=== PATIENT | male | born 1960 | race American Indian/Alaskan Native ===

== ENCOUNTER 2017-05-24 21:51 | Emergency (ER) | payer BC, OTHER ==
[2017-05-24 23:42] VITALS: BP 160/92
--- NOTE | 2017-05-24 23:42 | EDM.PDOC ---
ED HPI GENERAL MEDICAL PROBLEM - General Chief Complaint: General Stated Complaint: HIGH BLOOD PRESURE WEAK Time Seen by Provider: 05/24/17 21:56 Source of Information: Reports: Patient, Family (), RN Notes Reviewed History Limitations: Reports: No Limitations - History of Present Illness INITIAL COMMENTS - FREE TEXT/NARRATIVE: The patient states that he was attending a stressful meeting from noon until 18: 00, and around 13:00 he developed a headache felt behind his eyes. No blurry vision. He took 2 Tylenol around 18:00, and his headache subsequently resolved by 20:00. In the meantime, however, he went to the [facility] EMS station, where his blood pressure was checked and found to be elevated at 179/109. An ECG was performed, reviewed by a physician friend of one of the EMS personnel, and the physician suggested that the patient go to the ER for evaluation. The patient states that at no time did he have any chest pain, dyspnea, or palpitations. The patient does not have a history of hypertension. The patient reports that he ordinarily drinks about 1/2 to 3/4 of a pot of coffee daily, but that he abruptly discontinued coffee 2 days ago. The patient does not have a PCP. - Related Data Allergies Allergy/AdvReac Type Severity Reaction Status Date / Time No Known Allergies Allergy Verified 05/24/17 22:02 Home Meds: Home Meds Aspirin [Halfprin] 81 mg PO ONETIME 05/24/17 [History] Cholecalciferol (Vitamin D3) [Vitamin D3] 1,000 units PO DAILY 05/24/17 [History ] Enalapril [Vasotec] 5 mg PO DAILY 05/24/17 [History] Insulin Aspart [Novolog] 60 unit SQ BID 05/24/17 [History] Insulin Detemir [Levemir Flextouch] 60 unit SQ BID 05/24/17 [History] Liraglutide [Victoza] 1.2 mg SUBCUT DAILY 05/24/17 [History] atorvaSTATin [Lipitor] 10 mg PO DAILY 05/24/17 [History] metFORMIN HCl [Metformin HCl] 1,000 mg PO BID 05/24/17 [History] Past Medical History Cardiovascular History: Reports: High Cholesterol Gastrointestinal History: Reports: GERD Musculoskeletal History: Reports: Other (See Below) (Left carpal tunnel) Endocrine/Metabolic History: Reports: Diabetes, Type II, Obesity/BMI 30+ - Past Surgical History HEENT Surgical History: Reports: Oral Surgery ([place] tooth extraction) GI Surgical History: Reports: Appendectomy Musculoskeletal Surgical History: Reports: Other (See Below) Other Musculoskeletal Surgeries/Procedures:: left torn acl Social & Family History - Tobacco Use Years of Tobacco use: 35 Packs/Tins Daily: 0.8 - Alcohol Use Alcohol Use History: No - Recreational Drug Use Recreational Drug Use: No - Living Situation & Occupation Living situation: Reports: , with Spouse, with Family (Niece) Occupation: Employed ([employer]) ED ROS GENERAL - Review of Systems Review Of Systems: See Below Constitutional: Reports: No Symptoms HEENT: Reports: No Symptoms Respiratory: Reports: No Symptoms Cardiovascular: Reports: No Symptoms Endocrine: Reports: No Symptoms GI/Abdominal: Reports: No Symptoms : Reports: No Symptoms Musculoskeletal: Reports: No Symptoms Skin: Reports: No Symptoms Neurological: Reports: No Symptoms Psychiatric: Reports: No Symptoms Hematologic/Lymphatic: Reports: No Symptoms Immunologic: Reports: No Symptoms ED EXAM, GENERAL - Physical Exam Exam: See Below Exam Limited By: No Limitations General Appearance: Alert, WD/WN, No Apparent Distress Eye Exam: Bilateral Eye: EOMI, Normal Inspection, PERRL Ears: Normal External Exam, Normal Canal, Hearing Grossly Normal, Normal TMs Nose: Normal Inspection, Normal Mucosa, No Blood Throat/Mouth: Normal Inspection, Normal Lips, Normal Teeth, Normal Gums, Normal Oropharynx, Normal Voice, No Airway Compromise Head: Atraumatic, Normocephalic Neck: Normal Inspection, Supple, Non-Tender, Full Range of Motion Respiratory/Chest: No Respiratory Distress, Lungs Clear, Normal Breath Sounds, No Accessory Muscle Use Cardiovascular: Normal Peripheral Pulses, Regular Rate, Rhythm, No Gallop, No JVD, No Murmur, No Rub Peripheral Pulses: 4+: Radial (L), Radial (R) GI/Abdominal: Normal Bowel Sounds, Soft, Non-Tender, No Organomegaly, No Distention, No Abnormal Bruit, No Mass, Other (Obese) (Male) Exam: Deferred Rectal (Males) Exam: Deferred Back Exam: Normal Inspection, Full Range of Motion, NT Extremities: Normal Inspection, Normal Range of Motion, No Pedal Edema, Normal Capillary Refill Neurological: Alert, Oriented, CN II-XII Intact, Normal Cognition, No Motor/ Sensory Deficits Psychiatric: Normal Affect Skin Exam: Warm, Dry, Intact, Normal Color, No Rash Lymphatic: No Adenopathy EKG INTERPRETATION EKG Date: 05/24/17 Time: 22:10 Rhythm: NSR Rate (Beats/Min): 91 [place]: Normal P-Wave: Present QRS: Normal ST-T: Normal (J-point elevation anterior leads. No ischemic changes.) QT: Normal Comparison: NA - No Prior EKG Course - Vital Signs Last Recorded V/S: Last Vital Signs Temp 36.1 C 05/24/17 22:07 Pulse 82 05/24/17 23:41 Resp 20 05/24/17 23:41 BP 160/92 H 05/24/17 23:41 Pulse Ox 96 05/24/17 23:41 - Orders/Labs/Meds Labs: Laboratory Tests 05/24/17 Range/Units 22:50 Urine Color Light yellow (Yellow) Urine Appearance Clear (Clear) Urine pH 6.5 (5.0-8.0) Ur Specific [place] 1.010 (1.005-1.030) Urine Protein Negative (Negative) Urine Glucose (UA) Trace H (Negative) Urine Ketones Negative (Negative) Urine Occult Blood Negative (Negative) Urine Nitrite Negative (Negative) Urine Bilirubin Negative (Negative) Urine Urobilinogen 0.2 (0.2-1.0) Ur Leukocyte Esterase Negative (Negative) Urine RBC Not seen (0-5) /hpf Urine WBC Not seen (0-5) /hpf Ur Epithelial Cells 0-5 (0-5) /hpf Urine Bacteria Rare (FEW) /hpf Urine Mucus Not seen (FEW) /hpf - Re-Assessments/Exams Free Text/Narrative Re-Assessment/Exam: 05/24/17 23:37 Without treatment, the patient's blood pressure has decreased to 155/88, heart rate 87, saturating 97% on room air. No medical treatment is required for this BP. The patient's headache appears to be classic for a caffeine-withdrawal headache. It resolved after he was given Tylenol earlier today. The patient tells me that about one month ago his blood pressure was checked, and it was about 120/80. It does not appear that the patient suffers from hypertension, however, we discussed other health issues, and I will refer the patient to Dr. Araujo for general health screening and referral for colonoscopy. Departure - Departure Time of Disposition: 23:38 Disposition: Home, Self-Care 01 Condition: Good Clinical Impression: Caffeine withdrawal, Elevated blood pressure reading, Headache - Discharge Information Instructions: General Headache Without Cause, Hypertension, [id number] Referrals: PCP,Not In Area [Primary Care Provider] - Loco Araujo [Physician] - Forms: ED Department Discharge Additional Instructions: You were seen in the emergency room after suffering a headache, and having elevated blood pressure. Your headache appears to be due to a sudden discontinuation of coffee. Going forward, it is okay to drink 1 or 2 cups of coffee a day. Your blood pressure decreased significantly in the ER, without any treatment. It does not appear that you have hypertension. We recommend you follow-up with Dr. Araujo for general health screening, and referral for a colonoscopy. If any other problems, please do not hesitate to return to the ER.
== END 2017-05-24 23:45 | disposition home or self-care (01) ==
LOC: SUPCPDRO 21:51 → JD.ED 21:51
DX: F15.93 Other stimulant use, unspecified with withdrawal (principal); R03.0 Elevated blood-pressure reading, without diagnosis of hypertension; R51 Headache; E78.00 Pure hypercholesterolemia, unspecified; K21.9 Gastro-esophageal reflux disease without esophagitis; E11.9 Type 2 diabetes mellitus without complications; E66.9 Obesity, unspecified; Z68.37 Body mass index [BMI] 37.0-37.9, adult; Z90.49 Acquired absence of other specified parts of digestive tract; Z98.890 Other specified postprocedural states; Z79.82 Long term (current) use of aspirin; Z79.84 Long term (current) use of oral hypoglycemic drugs; Z79.4 Long term (current) use of insulin; Z79.899 Other long term (current) drug therapy
CPT/HCPCS: 81001; 93005; 99282; 99284-25